=== PATIENT | male | born 1970 | race Caucasian/White ===

== ENCOUNTER 2018-03-03 11:54 | Observation (INO) ==
[2018-03-03] MEDS ORDERED: ACETAMINOPHEN 325 MG TABLET PO PRN (12:06)
[2018-03-03] MEDS ORDERED: GLUCAGON 1 MG VIAL IM PRN (12:06)
[2018-03-03] MEDS ORDERED: PROMETHAZINE 25 MG/1 ML VIAL IM PRN (12:06)
[2018-03-03] MEDS ORDERED: ONDANSETRON 4 MG/2 ML VIAL IV PRN (12:06)
[2018-03-03] MEDS ORDERED: DEXTROSE 50% 25 GM/50 ML VIAL IV PRN (12:06)
[2018-03-03] MEDS ORDERED: oxyCODONE/ACETAMINOPHEN 5-325 MG TABLET PO PRN ×2 (12:08→15:59)
[2018-03-03] MEDS ORDERED: cefTRIAXone 2,000 MG in SYRINGE 1 EACH IV SCH (13:00)
[2018-03-03 14:43] LABS: Calcium 8.2 MG/DL (8.5-10.1); Potassium 4.4 MMOL/L (3.5-5.1)
[2018-03-03] MEDS: SODIUM CHLORIDE 0.9% 1,000 ML IV SCH ×2 (15:52→23:45)
[2018-03-03] MEDS ORDERED: BACLOFEN 10 MG TABLET PO PRN (15:59)
[2018-03-03 16:03] LABS: Basophils % 0.2 % (0.0-0.8); Eosinophils # 0.2 10*3/uL (0.0-0.87); Eosinophils % 1.8 % (0.00-10.9); Hematocrit 40.9 VOL% (42.0-52.0); Hemoglobin 13.8 GM/DL (14.0-18.0); Immature Granulocytes % 0.5 %; Immature Granulocytes Absolute 0.05 #; Lymphocytes % 21.1 % (21.2-54.2); Mean Corpuscular HGB Conc 33.7 GM/DL (32-36); Mean Corpuscular Hemoglobin 30 PG (27-34); Mean Platelet Volume 9.4 FL (9.6-12.0); Monocytes # 1.1 10*3/uL (0.11-0.8); Monocytes % 11.4 % (1.7-12.7); Neutrophils # 6.2 10*3/uL (1.4-7.4); Platelet Count 184 T/CUMM (130-400); Red Blood Count 4.65 MC/CUMM (3.8-5.5); Red Cell Distribution Width 12.5 % (9.3-17.3); White Blood Count 9.6 T/CUMM (4-12)
[2018-03-03] MEDS: HYDROmorphone 2 MG/1 ML VIAL IV PRN ×2 (16:13→20:33)
[2018-03-03] MEDS: INSULIN REGULAR 100 UNIT/ML SUBCUT SCH ×2 (16:30→20:50)
[2018-03-03] MEDS: TAMSULOSIN 0.4 MG CAPSULE PO SCH (20:32)
[2018-03-03] MEDS: DULoxetine 30 MG CAPSULE PO SCH (20:32)
[2018-03-03] MEDS ORDERED: GABAPENTIN 100 MG CAPSULE PO SCH (21:00)
[2018-03-03] MEDS ORDERED: DULoxetine 30 MG CAPSULE PO SCH (21:00)
[2018-03-03] MEDS ORDERED: GABAPENTIN 300 MG CAPSULE PO SCH (21:00)
[2018-03-04] MEDS: HYDROmorphone 2 MG/1 ML VIAL IV PRN (00:56)
[2018-03-04 01:56] LABS: Apearance,Urine CLEAR (Clear); Bacteria,Urine Occasional /HPF (Few); Bilirubin,Urine Negative (Negative); Blood, Urine Large mg/dL (Negative); Glucose,Urine (UA) 150 mg/dL (Negative); Ketones,Urine Negative (Negative); Nitrite,Urine Negative (Negative); Protein,Urine Negative; RBC,Urine 15 /HPF (0-4); Urine Color Yellow (Yellow); Urine Specific Gravity 1.009 (1.001-1.035); Urine Urobilinogen < 2.0 EU/DL (0.2-1.0); WBC,Urine 4 /HPF (0-6)
[2018-03-04 04:04] LABS: Basophils % 0.3 % (0.0-0.8); Eosinophils # 0.2 10*3/uL (0.0-0.87); Eosinophils % 2.3 % (0.00-10.9); Hematocrit 42.3 VOL% (42.0-52.0); Hemoglobin 13.8 GM/DL (14.0-18.0); Immature Granulocytes % 0.5 %; Immature Granulocytes Absolute 0.04 #; Lymphocytes # 1.5 10*3/uL (1.4-4.0); Lymphocytes % 18.4 % (21.2-54.2); Mean Corpuscular HGB Conc 32.6 GM/DL (32-36); Mean Corpuscular Hemoglobin 29 PG (27-34); Mean Corpuscular Volume 89.1 FL (87-102); Mean Platelet Volume 9.3 FL (9.6-12.0); Monocytes # 0.9 10*3/uL (0.11-0.8); Monocytes % 11.5 % (1.7-12.7); Neutrophils # 5.4 10*3/uL (1.4-7.4); Platelet Count 179 T/CUMM (130-400); Red Blood Count 4.75 MC/CUMM (3.8-5.5); Red Cell Distribution Width 12.6 % (9.3-17.3)
[2018-03-04 04:18] LABS: Calcium 8.1 MG/DL (8.5-10.1); Osmolality,Calculated 281.7 MOS/KG (273-304); Potassium 4.4 MMOL/L (3.5-5.1)
[2018-03-04] MEDS ORDERED: LEVOTHYROXINE 125 MCG TABLET PO SCH ×2 (06:30→09:00)
[2018-03-04 07:20] VITALS: BP 123/69
[2018-03-04] MEDS: INSULIN REGULAR 100 UNIT/ML SUBCUT SCH (07:30)
[2018-03-04] MEDS: DULoxetine 30 MG CAPSULE PO SCH (08:47)
[2018-03-04] MEDS: TAMSULOSIN 0.4 MG CAPSULE PO SCH (08:48)
[2018-03-04] MEDS: SODIUM CHLORIDE 0.9% 1,000 ML IV SCH (08:49)
[2018-03-04] MEDS ORDERED: MONTELUKAST 10 MG TABLET PO SCH (09:00)
[2018-03-04] MEDS ORDERED: PANTOPRAZOLE 40 MG TABLET PO SCH (09:00)
[2018-03-04] MEDS ORDERED: GABAPENTIN 100 MG CAPSULE PO SCH (09:00)
[2018-03-04] MEDS ORDERED: FLUTICASONE 50 MCG NASAL SPRAY 16 GM BOTTLE BOTH NARES SCH (09:00)
[2018-03-08 13:08] LABS: Stone Source Ureter
== END 2018-03-04 10:30 | disposition home or self-care (01) ==
LOC: N.5E
PROVIDERS: ADMIT Surgery; ATTEND Surgery

== ENCOUNTER 2019-05-04 12:30 | Inpatient (IN) ==
[2019-05-04] MEDS ORDERED: METOCLOPRAMIDE 10 MG/2 ML VIAL IV STA (15:43)
[2019-05-04] MEDS ORDERED: SODIUM CHLORIDE 0.9% 1,000 ML IV STA (15:43)
[2019-05-04 16:21] LABS: Basophils # 0.1 10*3/uL (0.0-0.2); Basophils % 0.5 % (0.0-0.8); Eosinophils # 0.1 10*3/uL (0.0-0.87); Eosinophils % 0.5 % (0.00-10.9); Hematocrit 51.7 VOL% (42.0-52.0); Immature Granulocytes % 0.7 %; Immature Granulocytes Absolute 0.09 #; Lymphocytes # 2.9 10*3/uL (1.4-4.0); Lymphocytes % 23.2 % (21.2-54.2); Mean Corpuscular HGB Conc 34.8 GM/DL (32-36); Mean Platelet Volume 8.9 FL (9.6-12.0); Neutrophils % 67.1 % (38.7-73.9); Platelet Count 273 T/CUMM (130-400); Red Blood Count 6.08 MC/CUMM (3.8-5.5); Red Cell Distribution Width 13.3 % (9.3-17.3); White Blood Count 12.6 T/CUMM (4-12)
[2019-05-04 16:48] LABS: Albumin 3.9 G/DL (3.4-5.0); Bilirubin,Total 0.7 MG/DL (0.2-1.0); Calcium 8.3 MG/DL (8.5-10.1); Osmolality,Calculated 265.7 MOS/KG (273-304); Total Protein 8.6 G/DL (6.4-8.3)
[2019-05-04 17:28] LABS: ABG Base Excess -14.2 MMOL/L (-2.5-2.5); ABG Oxygen Saturation 96.4 % (95-100); ABG PCO2 27.8 MM HG (35-48); ABG PH 7.247 (7.35-7.45); ABG PO2 88.7 MM HG (80-95); ABG TCO2 10.4 MMOL/L (23-27)
[2019-05-04 18:18] LABS: Apearance,Urine CLEAR (Clear); Bacteria,Urine Occasional /HPF (Few); Bilirubin,Urine Negative (Negative); Blood, Urine Moderate mg/dL (Negative); Glucose,Urine (UA) >=500 mg/dL (Negative); Hyaline Casts,Urine 7 /LPF (0-3); Ketones,Urine 80 mg/dL (Negative); Mucus,Urine Occasional /LPF (Occasional); Nitrite,Urine Negative (Negative); Protein,Urine 100 MG/DL; RBC,Urine 2 /HPF (0-4); Squamous Epithelial Cell,Urine Occasional /HPF (0-10); Urine Color Yellow (Yellow); Urine Specific Gravity 1.022 (1.001-1.035); Urine Urobilinogen < 2.0 EU/DL (0.2-1.0)
[2019-05-04] MEDS ORDERED: ZALEPLON 5 MG CAPSULE PO PRN (20:31)
[2019-05-04] MEDS ORDERED: ONDANSETRON 4 MG/2 ML VIAL IV PRN (20:31)
[2019-05-04] MEDS ORDERED: ACETAMINOPHEN 325 MG TABLET PO PRN (20:31)
[2019-05-04] MEDS ORDERED: DEXTROSE 50% 25 GM/50 ML VIAL IV PRN (22:41)
[2019-05-04] MEDS ORDERED: GLUCAGON 1 MG VIAL IM PRN (22:41)
[2019-05-04] MEDS: ENOXAPARIN 40 MG/0.4 ML SYRINGE SUBCUT SCH (23:22)
[2019-05-05] MEDS: SODIUM CHLORIDE 0.9% 1,000 ML IV SCH ×4 (00:42→23:03)
[2019-05-05] MEDS: PANTOPRAZOLE 40 MG TABLET PO SCH (09:12)
[2019-05-05 10:19] LABS: Basophils % 0.5 % (0.0-0.8); Eosinophils # 0.2 10*3/uL (0.0-0.87); Eosinophils % 2.5 % (0.00-10.9); Hematocrit 43.9 VOL% (42.0-52.0); Immature Granulocytes % 0.3 %; Immature Granulocytes Absolute 0.03 #; Lymphocytes # 2.7 10*3/uL (1.4-4.0); Lymphocytes % 31.3 % (21.2-54.2); Mean Corpuscular HGB Conc 34.9 GM/DL (32-36); Mean Corpuscular Volume 85.1 FL (87-102); Mean Platelet Volume 8.8 FL (9.6-12.0); Monocytes % 9.4 % (1.7-12.7); Red Blood Count 5.16 MC/CUMM (3.8-5.5); Red Cell Distribution Width 13.3 % (9.3-17.3)
[2019-05-05 10:22] LABS: Hemoglobin 15.3 GM/DL (14.0-18.0); Platelet Count 217 T/CUMM (130-400); White Blood Count 8.6 T/CUMM (4-12)
[2019-05-05 10:43] LABS: Albumin 3.1 G/DL (3.4-5.0); Bilirubin,Total 0.6 MG/DL (0.2-1.0); Calcium 7.9 MG/DL (8.5-10.1); Total Protein 7.2 G/DL (6.4-8.3)
[2019-05-05] MEDS: INSULIN REGULAR 100 UNIT/ML SUBCUT SCH ×4 (11:10→21:08)
[2019-05-05] MEDS ORDERED: BACLOFEN 10 MG TABLET PO PRN (16:20)
[2019-05-05] MEDS ORDERED: PANTOPRAZOLE 40 MG TABLET PO SCH (16:30)
[2019-05-05] MEDS: LORATADINE 10 MG TABLET PO SCH (17:05)
[2019-05-05] MEDS: MONTELUKAST 10 MG TABLET PO SCH (17:05)
[2019-05-05] MEDS: GABAPENTIN 100 MG CAPSULE PO SCH ×2 (17:06→21:08)
[2019-05-05] MEDS: LEVOTHYROXINE 125 MCG TABLET PO SCH (17:06)
[2019-05-05] MEDS: TAMSULOSIN 0.4 MG CAPSULE PO SCH (17:06)
[2019-05-05] MEDS: FLUTICASONE 50 MCG NASAL SPRAY 16 GM BOTTLE BOTH NARES SCH (20:55)
[2019-05-05] MEDS: GLUCOSAM SU DIP CHONDROIT C MN PO SCH (20:55)
[2019-05-05] MEDS: DULoxetine 30 MG CAPSULE PO SCH (21:08)
[2019-05-05] MEDS: ENOXAPARIN 40 MG/0.4 ML SYRINGE SUBCUT SCH (21:08)
[2019-05-05] MEDS: SULFAMETHOX/TRIMETHOPRIM 800-160 MG TABLET PO SCH (21:09)
[2019-05-06] MEDS: SODIUM CHLORIDE 0.9% 1,000 ML IV SCH ×5 (04:07→20:22)
[2019-05-06] MEDS: LEVOTHYROXINE 125 MCG TABLET PO SCH (06:32)
[2019-05-06] MEDS: INSULIN REGULAR 100 UNIT/ML SUBCUT SCH ×4 (09:48→21:13)
[2019-05-06] MEDS: PANTOPRAZOLE 40 MG TABLET PO SCH (09:49)
[2019-05-06] MEDS: MONTELUKAST 10 MG TABLET PO SCH (09:49)
[2019-05-06] MEDS: SULFAMETHOX/TRIMETHOPRIM 800-160 MG TABLET PO SCH ×2 (09:49→20:21)
[2019-05-06] MEDS: DULoxetine 30 MG CAPSULE PO SCH ×2 (09:49→20:21)
[2019-05-06] MEDS: GABAPENTIN 100 MG CAPSULE PO SCH ×2 (09:49→20:21)
[2019-05-06] MEDS: LORATADINE 10 MG TABLET PO SCH (09:49)
[2019-05-06] MEDS: GLUCOSAM SU DIP CHONDROIT C MN PO SCH (09:50)
[2019-05-06] MEDS: FLUTICASONE 50 MCG NASAL SPRAY 16 GM BOTTLE BOTH NARES SCH (11:24)
[2019-05-06 12:23] LABS: Alanine Aminotransferase 22 U/L (16-61); Albumin 2.6 G/DL (3.4-5.0); Alkaline Phosphatase 52 U/L (45-117); Aspartate Amino Transferase 12 U/L (0-37); Bilirubin,Total < 0.39 MG/DL (0.2-1.0); Blood Urea Nitrogen 7 MG/DL (7-18); Estimated Glom Filtration Rate 126 ML/MIN; Glucose 201 MG/DL (74-106); Total Protein 6.2 G/DL (6.4-8.3)
[2019-05-06] MEDS: TAMSULOSIN 0.4 MG CAPSULE PO SCH (12:32)
[2019-05-06] MEDS: POTASSIUM CHLORIDE 20 MEQ/15 ML UDCUP PO SCH ×2 (16:04→20:22)
[2019-05-06] MEDS: DOCUSATE/SENNA 50-8.6 MG TABLET PO SCH (20:21)
[2019-05-06] MEDS: ENOXAPARIN 40 MG/0.4 ML SYRINGE SUBCUT SCH (20:22)
[2019-05-06] MEDS ORDERED: TAMSULOSIN 0.4 MG CAPSULE PO SCH (21:00)
[2019-05-07] MEDS: SODIUM CHLORIDE 0.9% 1,000 ML IV SCH (04:44)
[2019-05-07 04:53] LABS: Basophils % 0.3 % (0.0-0.8); Eosinophils # 0.1 10*3/uL (0.0-0.87); Eosinophils % 1.9 % (0.00-10.9); Hematocrit 43.2 VOL% (42.0-52.0); Hemoglobin 14.8 GM/DL (14.0-18.0); Immature Granulocytes % 0.3 %; Immature Granulocytes Absolute 0.02 #; Lymphocytes # 1.8 10*3/uL (1.4-4.0); Lymphocytes % 31.5 % (21.2-54.2); Mean Corpuscular HGB Conc 34.3 GM/DL (32-36); Mean Corpuscular Volume 86.2 FL (87-102); Mean Platelet Volume 8.8 FL (9.6-12.0); Monocytes % 10.4 % (1.7-12.7); Neutrophils % 55.6 % (38.7-73.9); Platelet Count 181 T/CUMM (130-400); Red Blood Count 5.01 MC/CUMM (3.8-5.5); Red Cell Distribution Width 13.4 % (9.3-17.3); White Blood Count 5.8 T/CUMM (4-12)
[2019-05-07 05:18] LABS: Calcium 8.6 MG/DL (8.5-10.1); Osmolality,Calculated 275.7 MOS/KG (273-304)
[2019-05-07 08:38] VITALS: BP 152/63
[2019-05-07] MEDS ORDERED: POTASSIUM CHLORIDE 20 MEQ/15 ML UDCUP PO ONE (09:20)
[2019-05-07] MEDS: MONTELUKAST 10 MG TABLET PO SCH (10:02)
[2019-05-07] MEDS: PANTOPRAZOLE 40 MG TABLET PO SCH (10:02)
[2019-05-07] MEDS: LORATADINE 10 MG TABLET PO SCH (10:02)
[2019-05-07] MEDS: DULoxetine 30 MG CAPSULE PO SCH (10:02)
[2019-05-07] MEDS: SULFAMETHOX/TRIMETHOPRIM 800-160 MG TABLET PO SCH (10:02)
[2019-05-07] MEDS: LEVOTHYROXINE 125 MCG TABLET PO SCH (10:02)
[2019-05-07] MEDS: GABAPENTIN 100 MG CAPSULE PO SCH (10:02)
[2019-05-07] MEDS: INSULIN REGULAR 100 UNIT/ML SUBCUT SCH (10:03)
[2019-05-07] MEDS: DOCUSATE/SENNA 50-8.6 MG TABLET PO SCH (10:03)
[2019-05-07] MEDS: GLUCOSAM SU DIP CHONDROIT C MN PO SCH (10:08)
[2019-05-07] MEDS: FLUTICASONE 50 MCG NASAL SPRAY 16 GM BOTTLE BOTH NARES SCH (12:32)
== END 2019-05-07 13:20 | disposition home or self-care (01) | DRG 641 ==
LOC: N.ED 12:30 → N.EDINP 12:30 → SUATTDRO 20:31 → N.EDINP 22:07 → N.2W 23:02 → N.5E 05-05 19:51
PROVIDERS: ADMIT Family Medicine; ATTEND Family Medicine

== ENCOUNTER 2019-05-13 09:42 | Observation (INO) ==
[2019-05-13] MEDS ORDERED: SODIUM CHLORIDE 0.9% 1,000 ML IV STA (11:18)
[2019-05-13 11:31] LABS: Basophils # 0.1 10*3/uL (0.0-0.2); Basophils % 0.6 % (0.0-0.8); Eosinophils # 0.1 10*3/uL (0.0-0.87); Eosinophils % 1.1 % (0.00-10.9); Hematocrit 49.1 VOL% (42.0-52.0); Hemoglobin 16.8 GM/DL (14.0-18.0); Immature Granulocytes % 0.8 %; Lymphocytes # 2.9 10*3/uL (1.4-4.0); Lymphocytes % 22.7 % (21.2-54.2); Mean Corpuscular HGB Conc 34.2 GM/DL (32-36); Mean Corpuscular Volume 86.6 FL (87-102); Monocytes % 13.3 % (1.7-12.7); Neutrophils % 61.5 % (38.7-73.9); Platelet Count 478 T/CUMM (130-400); Red Blood Count 5.67 MC/CUMM (3.8-5.5); Red Cell Distribution Width 13.5 % (9.3-17.3); White Blood Count 12.7 T/CUMM (4-12)
[2019-05-13 11:44] LABS: Albumin 3.6 G/DL (3.4-5.0); Bilirubin,Total 0.8 MG/DL (0.2-1.0); Calcium 8.9 MG/DL (8.5-10.1); Osmolality,Calculated 271.1 MOS/KG (273-304); Total Protein 7.9 G/DL (6.4-8.3)
[2019-05-13] MEDS ORDERED: diphenhydrAMINE CAP 25 MG CAPSULE PO PRN (13:16)
[2019-05-13] MEDS ORDERED: guaiFENesin/DM ER 600-30 MG TABLET PO PRN (13:16)
[2019-05-13] MEDS ORDERED: ONDANSETRON 4 MG/2 ML VIAL IV PRN (13:16)
[2019-05-13] MEDS ORDERED: ZALEPLON 5 MG CAPSULE PO PRN (13:16)
[2019-05-13] MEDS ORDERED: traZODone 50 MG TABLET PO PRN (13:16)
[2019-05-13] MEDS ORDERED: ACETAMINOPHEN 325 MG TABLET PO PRN (13:16)
[2019-05-13] MEDS ORDERED: ONDANSETRON 4 MG TABLET PO PRN (13:20)
[2019-05-13] MEDS ORDERED: BACLOFEN 10 MG TABLET PO PRN (13:20)
[2019-05-13] MEDS ORDERED: SODIUM CHLORIDE 0.9% 1,000 ML IV SCH (13:30)
[2019-05-13 13:39] LABS: Apearance,Urine Slightly Hazy (Clear); Bilirubin,Urine Negative (Negative); Blood, Urine Small mg/dL (Negative); Glucose,Urine (UA) >=500 mg/dL (Negative); Hyaline Casts,Urine 28 /LPF (0-3); Ketones,Urine 5 mg/dL (Negative); Mucus,Urine Occasional /LPF (Occasional); Nitrite,Urine Negative (Negative); Protein,Urine Negative; RBC,Urine 6 /HPF (0-4); Squamous Epithelial Cell,Urine Occasional /HPF (0-10); Urine Color Yellow (Yellow); Urine Specific Gravity 1.017 (1.001-1.035); Urine Urobilinogen < 2.0 EU/DL (0.2-1.0); WBC,Urine 10 /HPF (0-6)
[2019-05-13] MEDS ORDERED: GLUCAGON 1 MG VIAL IM PRN (14:52)
[2019-05-13] MEDS ORDERED: DEXTROSE 50% 25 GM/50 ML VIAL IV PRN (14:52)
[2019-05-13] MEDS ORDERED: cefTRIAXone 1,000 MG in SODIUM CHLORIDE 0.9% 100 ML IV SCH (15:00)
[2019-05-13] MEDS ORDERED: LEVOFLOXACIN INJ 500 MG in PREMIX 1 EACH IV SCH (15:00)
[2019-05-13] MEDS: INSULIN REGULAR 100 UNIT/ML SUBCUT SCH ×2 (16:52→21:27)
[2019-05-13 18:24] LABS: Troponin I < 0.015 NG/ML (0.00-0.045)
[2019-05-13] MEDS ORDERED: SODIUM CHLORIDE 0.9% 1,000 ML IV PRN (19:58)
[2019-05-13] MEDS: SODIUM CHLORIDE 0.9% 1,000 ML IV SCH (20:00)
[2019-05-13] MEDS ORDERED: GABAPENTIN 100 MG CAPSULE PO SCH (21:00)
[2019-05-13 21:09] LABS: Troponin I < 0.015 NG/ML (0.00-0.045)
[2019-05-13] MEDS: DULoxetine 30 MG CAPSULE PO SCH (21:18)
[2019-05-13] MEDS: DOCUSATE/SENNA 50-8.6 MG TABLET PO SCH (21:18)
[2019-05-13] MEDS: DOCUSATE SODIUM 100 MG CAPSULE PO SCH (21:19)
[2019-05-13] MEDS: ACETYLCYSTEINE 600 MG CAPSULE PO SCH (21:26)
[2019-05-13] MEDS: APIXABAN 5 MG TABLET PO SCH (21:26)
[2019-05-14 04:56] LABS: Basophils # 0.1 10*3/uL (0.0-0.2); Basophils % 0.7 % (0.0-0.8); Eosinophils # 0.2 10*3/uL (0.0-0.87); Eosinophils % 2.2 % (0.00-10.9); Hematocrit 46.8 VOL% (42.0-52.0); Hemoglobin 15.5 GM/DL (14.0-18.0); Immature Granulocytes % 0.7 %; Immature Granulocytes Absolute 0.06 #; Lymphocytes # 3.2 10*3/uL (1.4-4.0); Lymphocytes % 38.6 % (21.2-54.2); Mean Corpuscular HGB Conc 33.1 GM/DL (32-36); Mean Corpuscular Volume 87.8 FL (87-102); Mean Platelet Volume 8.9 FL (9.6-12.0); Monocytes % 14.6 % (1.7-12.7); Neutrophils % 43.2 % (38.7-73.9); Platelet Count 351 T/CUMM (130-400); Red Blood Count 5.33 MC/CUMM (3.8-5.5); Red Cell Distribution Width 13.6 % (9.3-17.3); White Blood Count 8.3 T/CUMM (4-12)
[2019-05-14 05:29] LABS: Albumin 3.2 G/DL (3.4-5.0); Bilirubin,Total 1.8 MG/DL (0.2-1.0); Calcium 8.9 MG/DL (8.5-10.1); Osmolality,Calculated 274.2 MOS/KG (273-304); Total Protein 7.5 G/DL (6.4-8.3)
[2019-05-14] MEDS: SODIUM CHLORIDE 0.9% 1,000 ML IV SCH (06:02)
[2019-05-14] MEDS: INSULIN REGULAR 100 UNIT/ML SUBCUT SCH ×2 (08:37→13:39)
[2019-05-14] MEDS: DOCUSATE SODIUM 100 MG CAPSULE PO SCH (08:41)
[2019-05-14] MEDS: DOCUSATE/SENNA 50-8.6 MG TABLET PO SCH (08:41)
[2019-05-14] MEDS: DULoxetine 30 MG CAPSULE PO SCH (08:41)
[2019-05-14] MEDS: APIXABAN 5 MG TABLET PO SCH (08:41)
[2019-05-14] MEDS: ACETYLCYSTEINE 600 MG CAPSULE PO SCH (08:44)
[2019-05-14 08:47] VITALS: BP 135/84
[2019-05-14] MEDS ORDERED: LORATADINE 10 MG TABLET PO SCH (09:00)
[2019-05-14] MEDS ORDERED: TAMSULOSIN 0.4 MG CAPSULE PO SCH (09:00)
[2019-05-14] MEDS ORDERED: GABAPENTIN 100 MG CAPSULE PO SCH (09:00)
[2019-05-14] MEDS ORDERED: PANTOPRAZOLE 40 MG TABLET PO SCH ×2 (09:00)
[2019-05-14] MEDS ORDERED: FLUTICASONE 50 MCG NASAL SPRAY 16 GM BOTTLE BOTH NARES SCH (09:00)
[2019-05-14] MEDS ORDERED: LEVOTHYROXINE 125 MCG TABLET PO SCH (09:00)
[2019-05-14] MEDS ORDERED: MONTELUKAST 10 MG TABLET PO SCH (09:00)
== END 2019-05-14 14:44 | disposition home or self-care (01) ==
LOC: N.EDINP 09:42 → N.ED 09:42 → N.EDINP 15:10 → N.2W 15:28
PROVIDERS: ADMIT Hospitalist; ATTEND Hospitalist